=== PATIENT | female | born 1995 | race Caucasian/White ===

== ENCOUNTER 2017-08-15 14:38 | Emergency (ER) | payer SELFPAY | END 2017-08-15 15:12 | disposition left against medical advice (07) | LOC: ER 14:47 | DX: Z53.21 Procedure and treatment not carried out due to patient leaving prior to being seen by health care provider (principal) ==

== ENCOUNTER 2017-09-11 15:40 | Emergency (ER) | payer OTHER ==
[~2017-09-11] VITALS: Ht 165.1 cm; Wt 56.7 kg
[2017-09-11] MEDS ORDERED: NAPR500T4 PO (16:10)
--- NOTE | 2017-09-11 18:18 | NUR ---
pt awaiting md denson.
--- NOTE | 2017-09-11 18:50 | NUR ---
Patient discharged to home in stable conditon. Written and verbal after care instructions given. Patient verbalizes understanding of instructions.
== END 2017-09-11 18:51 | disposition home or self-care (01) ==
LOC: ER 15:40
DX: N64.4 Mastodynia (principal)
CPT/HCPCS: 76642-TC; A4663